=== PATIENT | female | born 1995 | race Caucasian/White ===

== ENCOUNTER 2020-10-25 01:43 | Emergency (ER) | payer OTHER, SELFPAY ==
--- NOTE | 2020-10-25 | XR_ITS ---
EXAMINATION: RIGHT HAND 3 VIEWS CLINICAL INFORMATION: Right hand pain and swelling. COMPARISON: 01/20/2017. TECHNIQUE: PA, lateral, oblique views of the right hand were obtained. FINDINGS: There is an oblique fracture to the base of the right fifth metacarpal with mild volar angulation to the distal fracture fragment. There is associated soft tissue swelling. XR/XR hand wrist RT IMPRESSION: Oblique fracture to the base of the right fifth metacarpal with associated soft tissue swelling.
[2020-10-25 01:45] VITALS: BP 129/81; PULSE 91; RESP 18; TEMP 37.2; O2SAT 100; BMI 22.4
--- NOTE | 2020-10-25 02:25 | ED.GENADULT ---
HPI - General Adult General Chief complaint: General Medical Stated complaint: Hand Injury Time Seen by Provider: 10/25/20 02:25 Source: patient Mode of arrival: ambulatory Limitations: no limitations History of Present Illness HPI narrative: Patient punched door frame with the right hand came with swelling of lateral aspect of the right hand with increased pain no other injuries patient was upset at home at this time she is calm and cooperative Onset (ago): minute(s) Location: upper extremity (Right hand) Related Data Previous Rx's Medication Instructions Recorded ibuprofen 600 mg PO Q6H PRN #20 tab 10/25/20 Allergies Allergy/AdvReac Type Severity Reaction Status Date / Time mite-Dermatophagoides Allergy Mild ITCHING Unverified 07/18/20 19:14 aleks nuno [DUST MITES] Review of Systems Review of Systems: Yes all other systems are reviewed and are negative PMFSH Past Medical History Medical History No known health problems Social History Social History Advance Directives: No Advance Directives Information Provided: No Physical Exam Vital Signs: Vital Signs: Last Vital Signs Temp 99.0 F 10/25/20 01:45 Pulse 91 10/25/20 01:45 Resp 18 10/25/20 01:45 BP 129/81 10/25/20 01:45 Pulse Ox 100 10/25/20 01:45 Body Mass Index 22.4 Const: General: cooperative, healthy appearing and comfortable HENMT: Head: Yes normal to inspection, Yes normocephalic and Yes atraumatic Eyes: General: appearance normal, both eyes and all related structures Neck: Neck: Yes normal visual inspection Resp: Effort & Inspection: normal respiratory effort Extrem: Hand/finger images: 1. Tenderness swelling slight deformity suggestive of fracture base of 5th metacarpal neurovascular intact Procedures Orthopedic Splinting/Casting Injury #1: Side: right Upper Extremity Injury Location: hand Upper Extremity Immobilizer: ulnar gutter Medical Decision Making Imaging Data r hand xray: Attestation: I personally reviewed and interpreted this imaging study as follows: Radiologist's impression: EXAMINATION: RIGHT HAND 3 VIEWS CLINICAL INFORMATION: Right hand pain and swelling. COMPARISON: 01/20/2017. TECHNIQUE: PA, lateral, oblique views of the right hand were obtained. FINDINGS: There is an oblique fracture to the base of the right fifth metacarpal with mild volar angulation to the distal fracture fragment. There is associated soft tissue swelling. XR/XR hand wrist RT IMPRESSION: Oblique fracture to the base of the right fifth metacarpal with associated soft tissue swelling. Discharge Plan Discharge Clinical Impression: Fracture of metacarpal base of right hand, closed Qualifiers: Encounter type: initial encounter Metacarpal bone: fifth Fracture alignment: nondisplaced Qualified Code(s): S62.346A - Nondisplaced fracture of base of fifth metacarpal bone, right hand, initial encounter for closed fracture Patient Disposition: Home, Self-Care Instructions: Boxer Fracture (ED) Additional Instructions: Wear the splint for support Pain medication as advised Prescriptions: New ibuprofen 600 mg tablet 600 mg PO Q6H PRN (Reason: pain) Qty: 20 RF: 0
--- NOTE | 2020-10-25 02:25 | PC.NURSE ---
PT C/O RIGHT HAND PAIN AFTER HITTING A WALL. +DEFORMITY. MD IN ROOM FOR EVAL.
--- NOTE | 2020-10-25 02:49 | PC.NURSE ---
SPLINT BEING APPLIED AT THIS TIME. PT TOLERATING WELL.
== END 2020-10-25 03:40 | disposition home or self-care (01) ==
PROVIDERS: Emergency Provider Internal Medicine
DX: S62.346A Nondisplaced fracture of base of fifth metacarpal bone, right hand, initial encounter for closed fracture (principal); M79.641 Pain in right hand; X58.XXXA Exposure to other specified factors, initial encounter; Y93.9 Activity, unspecified; Y92.009 Unspecified place in unspecified non-institutional (private) residence as the place of occurrence of the external cause; Y99.9 Unspecified external cause status
CPT/HCPCS: 29125; 73110; 73130; 99283; 99284

== ENCOUNTER 2020-10-26 08:55 | Emergency (ER) | payer OTHER, SELFPAY ==
[2020-10-26 09:09] VITALS: BP 127/79; PULSE 87; RESP 18; TEMP 36.9; O2SAT 98; BMI 21.7
--- NOTE | 2020-10-26 09:24 | ED.GENADULT ---
HPI - General Adult General Chief complaint: General Medical Stated complaint: boxer fx rt hand Time Seen by Provider: 10/26/20 09:24 Source: patient Mode of arrival: ambulatory Limitations: no limitations History of Present Illness HPI narrative: Patient came to this ED on 10/25 with a oblique fracture of the 5th metacarpal on the right hand and a splint was placed. Today, she is complaining of numbness tingling and pain in digits 2 through 5. She can move her fingers but she states they feel ?squished ?. Related Data Previous Rx's Medication Instructions Recorded ibuprofen 600 mg PO Q6H PRN #20 tab 10/25/20 Allergies Allergy/AdvReac Type Severity Reaction Status Date / Time mite-Dermatophagoides Allergy Mild ITCHING Unverified 07/18/20 19:14 aleks nuno [DUST MITES] Review of Systems Review of Systems: See HPI [facility] Past Medical History Medical History No known health problems Social History Social History Advance Directives: No Advance Directives Information Provided: Yes Physical Exam Vital Signs: Vital Signs: Last Vital Signs Temp 98.4 F 10/26/20 09:09 Pulse 87 10/26/20 09:09 Resp 18 10/26/20 09:09 BP 127/79 10/26/20 09:09 Pulse Ox 98 10/26/20 09:09 Body Mass Index 21.7 Const: General: cooperative, healthy appearing, comfortable and no acute distress Orientation/consciousness: patient oriented x3 HENMT: Head: Yes normal to inspection Eyes: General: appearance normal, both eyes and all related structures Neuro: General: patient oriented x3 Extrem: Other: Right hand/wrist in full splint with digits 2-5 overlapping, NVI, removed splint immediately Course Course Course Narrative: Removed splint immediately patient right hand NVI, will recast in ulnar gutter splint Procedures Orthopedic Splinting/Casting Injury #1: Side: right Upper Extremity Injury Location: wrist Upper Extremity Immobilizer: ulnar gutter Discharge Plan Discharge Clinical Impression: Closed boxer's fracture Patient Disposition: Home, Self-Care Instructions: Boxer Fracture (ED) Additional Instructions: You were given a prescription for ibuprofen, you can continue to take this as needed, as prescribed. Prescriptions: No Action ibuprofen 600 mg tablet 600 mg PO Q6H PRN (Reason: pain) Qty: 20 RF: 0 Referrals: Bon Rich MD [Physician] - 2 days
== END 2020-10-26 09:53 | disposition home or self-care (01) ==
PROVIDERS: Emergency Provider Emergency Medicine Emergency Medical Services
DX: S62.306D Unspecified fracture of fifth metacarpal bone, right hand, subsequent encounter for fracture with routine healing (principal); X58.XXXD Exposure to other specified factors, subsequent encounter
CPT/HCPCS: 29125; 99283; 99284

== ENCOUNTER 2021-08-06 06:42 | Emergency (ER) | payer OTHER, SELFPAY ==
[2021-08-06 06:55] VITALS: BP 116/77; PULSE 94; RESP 18; TEMP 36; O2SAT 97; BMI 21.6
[2021-08-06 07:16] LABS: COVID-19 Test Negative (Negative)
--- NOTE | 2021-08-06 08:11 | ED.URI ---
HPI - URI/Sore Throat General Chief Complaint: Upper Respiratory Symptoms Stated Complaint: COVID Symp Time Seen by Provider: 08/06/21 08:05 Source: patient Mode of arrival: ambulatory Limitations: no limitations History of Present Illness HPI Narrative: 26-year-old female with no medical history presents to the ER with dry cough, headaches, nasal congestion, sore throat, body aches that started about 3 days ago. Her nasal congestion is preventing her from getting a good night's sleep. She works as a local delivery truck driver and had to call out yesterday because she did not sleep well. She is not vaccinated against COVID-19. She has no known sick contacts. She has been taking daytime cold and flu medications with improvement in her symptoms. She has not had any fevers or shortness of breath. When she coughs she has some intermittent chest discomfort. MD elicited complaint: cough, nasal congestion and sinus pain Onset (ago): day(s) (3) Consistency: intermittent Severity: moderate Description of mucous: yellow Able to tolerate fluids by mouth: Yes Exacerbating factors: supine positioning Relieving factors: OTC cold medicine Associated symptoms: voice changes, headache, rhinorrhea, nasal congestion and cough Treatments prior to arrival: none Related Data Previous Rx's Medication Instructions Recorded ibuprofen 600 mg tablet 600 mg PO Q6H PRN #20 tab 10/25/20 Allergies Allergy/AdvReac Type Severity Reaction Status Date / Time mite-Dermatophagoides Allergy Mild ITCHING Unverified 07/18/20 19:14 aleks nuno [DUST [employer]ES] Review of Systems Review of Systems: Constitutional: No Fever, No Chills ENT/Mouth: No sore throat, + Rhinorrhea, No Swallowing Difficulty Cardiovascular: + Chest Pain, No SOB, No Orthopnea, No Edema Respiratory: + Cough, No Sputum, No Wheezing, No dyspnea Gastrointestinal: No Nausea, No Vomiting, No Diarrhea, No abdominal Pain Musculoskeletal: No joint pain, No Myalgias Skin: No Skin Lesions, No rash Neuro: No Weakness, No Numbness, No Dizziness, + Headache Psych: + Anxiety/Panic Heme/Lymph: No Lymphadenopathy PMFSH Past Medical History Attestation statement: The following information was validated with the patient. Medical History No known health problems Social History Social History Advance Directives: No Advance Directives Information Provided: Yes Patient : No Physical Exam Vital Signs: Vital Signs: Last Vital Signs Temp 98.2 F 08/06/21 08:36 Pulse 77 08/06/21 08:36 Resp 12 08/06/21 08:36 BP 132/86 08/06/21 08:36 Pulse Ox 98 08/06/21 08:36 Body Mass Index 21.6 Appearance: Alert. Oriented X3. No acute distress. Eyes: Normal to inspection ENT: Pharynx with mild generalized erythema, no tonsillar swelling or exudate. Uvula is midline. Voice is slightly hoarse nasal discharge is clear Neck: Normal inspection. Neck supple. No lymphadenopathy CVS: Normal heart rate and rhythm. Pulses normal. Anterior chest wall with mild diffuse tenderness throughout. Respiratory: No respiratory distress. Breath sounds normal. Skin: Skin warm and dry. Normal skin color. Normal skin turgor. No rashes. Extremities: No lower extremity edema. Neuro: Oriented X 3. Grossly normal, nonfocal Course Course Course Narrative: 26-year-old female presents to the ER with 3 days of upper respiratory symptoms. She states this feels similar to when she had the flu several years ago. She is not vaccinated against COVID-19. She is nontoxic appearing with normal vital signs. Her COVID test today was negative she most likely has another viral syndrome causing her symptoms. Tolerating p.o. she is asking for a work note which we will provide. We discussed symptomatic care and the possibility of getting retested if her symptoms persist. She is stable for discharge home with supportive care. MDM - URI/Sore Throat Lab Data Labs: Lab Results 08/06/21 Range/Units 06:52 COVID-19 (ALESSIA) Negative (Negative) COVID-19 Clin Com See Note Critical Care Time Critical Care Time Critical Care Time: No Discharge Plan Discharge Clinical Impression: Upper respiratory infection Qualifiers: URI type: unspecified URI Qualified Code(s): J06.9 - Acute upper respiratory infection, unspecified Patient Disposition: Home, Self-Care Instructions: Viral Syndrome (ED) Additional Instructions: Urine negative for COVID-19 today. Continue rest and plenty of oral hydration. [id number] cold and flu medications as needed for your symptoms. Recommend Mucinex to help break up the mucus in her lungs. Follow-up with your doctor as needed If you develop new or worsening symptoms call 911 or come back to the ER for further evaluation. Prescriptions: No Action ibuprofen 600 mg tablet 600 mg PO Q6H PRN (Reason: pain) Qty: 20 RF: 0 Stand Alone Forms: Work/School Release Interventions: ED Discharge Assessment Last Done: 08/06/21 08:46 Discharge Date/Time: 08/06/21 08:41
[2021-08-06 08:36] VITALS: BP 132/86; PULSE 77; RESP 12; TEMP 36.8; O2SAT 98
--- NOTE | 2021-08-06 08:38 | PC.NURSE ---
PT STATES PAIN IN FLANK IS GONE, C/O 10/10 PAIN AT INJECTION SITE. nO SWELLING, REDNESS, NOTED AT INJECTION SITE. PT VERBALIZES INTENSE FEAR OF NEEDLES.
== END 2021-08-06 08:41 | disposition home or self-care (01) ==
PROVIDERS: Emergency Provider Emergency Medicine
DX: J06.9 Acute upper respiratory infection, unspecified (principal); Z20.822 Contact with and (suspected) exposure to COVID-19
CPT/HCPCS: 36415; 87635; 99283; 99284

== ENCOUNTER 2022-10-20 17:25 | Emergency (ER) | payer OTHER, SELFPAY ==
[2022-10-20 17:46] VITALS: BP 131/87; PULSE 88; RESP 18; TEMP 36.7; O2SAT 99; BMI 22.4
--- NOTE | 2022-10-20 17:46 | ED.EXTPRO ---
HPI - Extremity Problem General Chief complaint: Extremity Problem Stated complaint: (r) shoulder injury Time Seen by Provider: 10/20/22 17:55 Source: patient Mode of arrival: ambulatory Limitations: no limitations History of Present Illness HPI Narrative: Patient is a 27-year-old female presents emergency department for evaluation of right shoulder pain. Atraumatic in nature, onset of symptoms was 2-3 weeks ago. Took ibuprofen earlier this morning for the first time, with some improvement in pain. Denies numbness/ tingling. Denies nausea, vomiting, abdominal pain, fevers, chills. Related Data Previous Rx's Medication Instructions Recorded ibuprofen 600 mg tablet 600 mg PO Q6H PRN pain #20 tabs 10/25/20 naproxen 500 mg tablet 500 mg PO BID PRN pain #20 tabs 10/20/22 Allergies Allergy/AdvReac Type Severity Reaction Status Date / Time mite-Dermatophagoides Allergy Mild ITCHING Unverified 07/18/20 19:14 farinae, aleks [DUST [employer]ES] Review of Systems Review of Systems: Musculoskeletal: Right shoulder pain as noted in HPI Yes all other systems are reviewed and are negative [facility] Past Medical History Attestation statement: The following information was validated with the patient. Source: old records reviewed Medical History No known health problems Social History Social History Advance Directives: No Advance Directives Information Provided: No Physical Exam Vital Signs: Vital Signs: Last Vital Signs Temp 98.1 F 10/20/22 17:46 Pulse 88 10/20/22 17:46 Resp 18 10/20/22 17:46 BP 131/87 10/20/22 17:46 Pulse Ox 99 10/20/22 17:46 O2 Del Method 10/20/22 17:46 BMI result Body Mass Index 22.4 Appearance: Alert.?Oriented to person, place and time. No acute distress.?Normal affect. Eyes: Pupils equal, round and reactive to light.? ENT: Pharynx normal.?? Neck: Normal inspection.? Neck supple.?? CVS: Heart sounds normal. Normal heart rate and rhythm.? Pulses normal.?? Respiratory: No respiratory distress.? Lung sounds clear to auscultation bilaterally?? Abdomen: Soft and non-tender. Normoactive bowel sounds. Skin: Skin warm and dry.? Normal skin color.? Extremities: No lower extremity edema.? Right shoulder with point tenderness anteriorly at the biceps tendon insertion site, full AROM, neurovascularly intact distally Neuro: Moves all extremities spontaneously. Sensation intact bilaterally. No focal neuro deficits. Ambulates with normal steady gait. Course Course Course Narrative: Patient is a 27-year-old female presents emergency department for evaluation of right shoulder pain. Atraumatic in nature, symptoms improved earlier today with the ibuprofen. Full range of motion is present, no erythema, warmth, rash. No fevers no chills. Not consistent with fracture, dislocation, septic arthritis. No XR imaging warranted at this time, discussed this with patient as well and she is agreeable with plan. Given physical examination concerning for tendinitis given point tenderness. Discussed plan of care for high-dose NSAID, outpatient follow-up with primary care provider for further evaluation if symptoms persist. Discussed worsening signs and symptoms to return back to emergency department for. All questions answered. She departed in stable condition. She was given a return to work note. Discharge Plan Discharge Clinical Impression: Tendinitis of right shoulder Patient Disposition: Home, Self-Care Additional Instructions: Avoid repetitive strain to the shoulder, heavy lifting. Apply ice to the area for 10-15 minutes 3-4 times daily. Take naproxen twice daily, take with food to prevent stomach upset. Follow-up with your primary care provider for persistent symptoms. Return to emergency department any new or worsening symptoms or concerns. Prescriptions: New naproxen 500 mg tablet 500 mg PO BID PRN (Reason: pain) Qty: 20 0RF No Action ibuprofen 600 mg tablet 600 mg PO Q6H PRN (Reason: pain) Qty: 20 0RF Referrals: Physician,Unknown J [Primary Care Provider] - Stand Alone Forms: Work/School Release Interventions: ED Discharge Assessment Last Done: 10/20/22 17:59 Discharge Date/Time: 10/20/22 18:30
== END 2022-10-20 18:30 | disposition home or self-care (01) ==
PROVIDERS: Emergency Provider Emergency Medicine
DX: M75.21 Bicipital tendinitis, right shoulder (principal); M25.511 Pain in right shoulder
CPT/HCPCS: 99282; 99283

== ENCOUNTER 2022-10-22 08:53 | Emergency (ER) | payer OTHER, SELFPAY ==
--- NOTE | ~2022-10-22 | XR_ITS ---
EXAMINATION: XR SHOULDER, RIGHT CLINICAL INFORMATION: Right shoulder pain. COMPARISON: None TECHNIQUE: Three views of the right shoulder. FINDINGS: The bones and soft tissues are normal. No fracture. Glenohumeral and acromioclavicular alignment is anatomic with normal joint space. No abnormal soft tissue calcifications. XR/XR shoulder RT min 2V IMPRESSION: Unremarkable right shoulder.
[2022-10-22 09:14] VITALS: BP 121/87; PULSE 81; RESP 20; TEMP 36.7; O2SAT 100; BMI 22.4
--- NOTE | 2022-10-22 10:03 | ED_ITS ---
HPI - Extremity Problem General Chief complaint: Extremity Problem Stated complaint: R shoulder pain, no inj Time Seen by Provider: 10/22/22 09:33 Source: patient Mode of arrival: ambulatory Limitations: no limitations History of Present Illness HPI Narrative: 27-year-old female presenting to the ER with complaints of 3 weeks of right shoulder pain. 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 reports she occasionally wakes up with her bilateral hands numb in the mornings although resolved within a few minutes. She was seen here few weeks ago was told she had tendinitis although did not have an x-ray therefore she is requesting an x-ray at this time. She denies any dizziness, chest pain or shortness of breath, palpitations, extremity edema, nausea , recent falls or trauma or any other symptoms complaints or concerns at this time. MD Complaint: joint pain Onset (ago): week(s) (3) Pain Consistency: constant Location: right and upper extremity Quality: aching and constant Radiation: none Relieving factors: nothing Exacerbating factors: range of motion and palpation Associated symptoms: denies other symptoms Related Data Previous Rx's Medication Instructions Recorded ibuprofen 600 mg tablet 600 mg PO Q6H PRN pain #20 tabs 10/25/20 naproxen 500 mg tablet 500 mg PO BID PRN pain #20 tabs 10/20/22 cyclobenzaprine 10 mg tablet 10 mg PO Q8H #14 tabs 10/22/22 prednisone 20 mg tablet 40 mg PO DAILY inflammation 5 days 10/22/22 #10 tabs Allergies Allergy/AdvReac Type Severity Reaction Status Date / Time mite-Dermatophagoides Allergy Mild ITCHING Unverified 07/18/20 19:14 aleks nuno [DUST MITES] Review of Systems Review of Systems: Constitutional : No Weight loss, No Fever, No Chills, No Night Sweats, No Fatigue, No Malaise ENT/Mouth : No Hearing loss, No Ear Pain, No Nasal Congestion, No Sinus Pain, No Hoarseness, No sore throat, No Rhinorrhea, No Swallowing Difficulty Eyes: No Eye Pain, No Swelling, No Redness, No Foreign Body, No Discharge, No Vision Changes Cardiovascular : No Chest Pain, No SOB, No Dyspnea on Exertion, No Orthopnea, No Edema, No Palpitations Respiratory : No Cough, No Sputum, No Wheezing, No Smoke Exposure, No Dyspnea Gastrointestinal : No Nausea, No Vomiting, No Diarrhea, No Constipation, No abdominal Pain, No Hematochezia, No Melena Genitourinary : no irregular bleeding, No Dysuria, No Urinary Frequency, No Hematuria, No Urinary Incontinence, No Urgency, No Flank Pain, No Urinary Flow Changes, No Hesitancy Musculoskeletal : + right shoulder joint pain, No Myalgias, No Joint Swelling Skin : No Skin Lesions, No rash Neuro : No Weakness, No Numbness, No Paresthesias, No Loss of Consciousness, No Dizziness, No Headache Psych : No Anxiety/Panic, No Depression, No SI/HI/AH/VH, No Social Issues, Heme/Lymph: No Bruising, No Bleeding,No Lymphadenopathy Endocrine : No Polyuria, No Polydipsia, No Temperature Intolerance Yes all other systems are reviewed and are negative [facility] Past Medical History Attestation statement: The following information was validated with the patient. Source: old records reviewed and nursing notes reviewed Medical History No known health problems Social History Social History Advance Directives: No Physical Exam Vital Signs: Vital Signs: Last Vital Signs Temp 98.1 F 10/22/22 09:14 Pulse 81 10/22/22 09:14 Resp 20 10/22/22 09:14 BP 121/87 10/22/22 09:14 Pulse Ox 100 10/22/22 09:14 O2 Del Method 10/22/22 09:14 BMI result Body Mass Index 22.4 vital signs have been reviewed as normal and appeared to be correct. Blood pressure normal Heart rate normal. Respiration rate normal. Temperature normal. Oxygen saturation normal. Appearance: Alert. Oriented X3. No acute distress. Head: Normal external exam. Normocephalic. Atraumatic. Eyes: PERRLA. EOMI. Conjunctiva and sclera normal. Eyelids normal. ENT: Pharynx normal. Uvula midline. Moist mucous membranes. Neck: Normal inspection. Neck supple. FROM. CVS: Normal heart rate and rhythm. Respiratory: No respiratory distress. Painless inspiration. Skin: Skin warm and dry. Normal skin color. Normal skin turgor. No rashes/lesions/lacerations noted. Extremities: patient mild tenderness palpation to the right AC joint with full range of motion. No obvious ligamentous or tendon injury noted. No upper extremity edema noted. Otherwise all other extremities exhibit normal range of motion nontender. Neuro: Oriented X 3. No motor deficit. No sensory deficit. Reflexes normal. Normal steady gait. No focal neuro deficits noted. Vascular: + radial pulses/+ 2 distal pedal pulses/+2 dorsalis pedis b/l. Normal cap refill. No cyanosis noted to upper extremity nails and lower extremity toes nails. Course Course Course Narrative: right shoulder x-ray negative for any acute processes. Will DC home with symptomatic treatment instructions return if any new or worsening symptoms follow up with primary care provider. Patient understands agrees with this [facility]. FINDINGS: The bones and soft tissues are normal. No fracture. Glenohumeral and acromioclavicular alignment is anatomic with normal joint space. No abnormal soft tissue calcifications.? XR/XR shoulder RT min 2V IMPRESSION: Unremarkable right shoulder. Discharge Plan Discharge Clinical Impression: Right shoulder tendinitis Patient Disposition: Home, Self-Care Instructions: Rotator Cuff Tendinitis (ED) Prescriptions: New cyclobenzaprine 10 mg tablet 10 mg PO Q8H Qty: 14 0RF prednisone 20 mg tablet 40 mg PO DAILY 5 Days Qty: 10 0RF No Action ibuprofen 600 mg tablet 600 mg PO Q6H PRN (Reason: pain) Qty: 20 0RF naproxen 500 mg tablet 500 mg PO BID PRN (Reason: pain) Qty: 20 0RF Referrals: [facility] [place] [facility] [place] Group] (call pcp first although this is the number for Orthopedics if symptoms persist for a few weeks you can follow-up with them as well) Stand Alone Forms: Work/School Release
== END 2022-10-22 10:22 | disposition home or self-care (01) ==
PROVIDERS: Emergency Provider Emergency Medicine Emergency Medical Services
DX: M75.91 Shoulder lesion, unspecified, right shoulder (principal); M25.511 Pain in right shoulder
CPT/HCPCS: 73030; 99283